=== PATIENT | female | born 1980 | race Caucasian/White ===

== ENCOUNTER 2023-11-08 19:05 | Emergency (ER) | payer MEDICAID, SELFPAY ==
--- NOTE | 2023-11-08 19:23 | XR_ITS ---
[address] [address] Patient Name: VIOLETA CLEARY MRN: [id number] date: 1980 Sex: F Assigned Patient Location: ED.MAIN Current Patient Location: Accession/Order Number: [id number] Exam Date: 11/08/2023 19:45 Report Date: 11/08/2023 22:10 At the request of: CHARLOTTE SIMPSON Procedure: XR chest 1V EXAM: XR chest 1V HISTORY: Palpitation COMPARISON: None FINDINGS/IMPRESSION: 1. Lungs are clear 2. No pneumothorax. No pleural effusion. 3. Heart size and mediastinal contours are normal 4. No acute osseous abnormality 5. Upper abdominal bowel gas pattern is nonspecific. Electronically authenticated by: VARGHESE SOUTH Date: 11/08/2023 22:10
--- NOTE | 2023-11-08 19:23 | ECG_ITS ---
[facility] Test Date: 2023-11-08 Pat Name: VIOLETA CLEARY Department: Room: - Gender: Female Management Lead: : 1980 Requested By: Order Number: [id number] Reading MD: ZAFAR RODRÍGUEZ Measurements Intervals [place] Rate: 97 P: -6 CA: 128 QRS: -27 QRSD: 64 T: 2 QT: 344 QTc: 398 Interpretive Statements 1100 Sinus rhythm 6220 Possible left atrial enlargement 7202 Moderate left axis deviation 9130 borderline ECG Compared to ECG 11/08/2023 19:23:22 No significant changes Electronically Signed On 11-08-2023 22:59:42 EDT by ZAFAR RODRÍGUEZ
--- NOTE | 2023-11-08 19:24 | ED.GENADUL1 ---
HPI HPI - General Adult General Chief complaint: Chest Pain Stated complaint: CHEST PAIN Time Seen by Provider: 11/08/23 19:19 History of Present Illness HPI narrative: 33-year-old female presents for a fast heartbeat. She states this started about 30 minutes ago and she has a history of SVT. Her last episode of SVT was 10 years ago and she had to go to the emergency department numerous times previous to that point. It has been continuous. She does not have syncope or fever or cough or vomiting. Related Data Home Medications ?Medication ?Instructions ?Recorded ?Confirmed sertraline 25 mg tablet (Zoloft) 25 mg PO Q24H 11/08/23 11/08/23 Allergies Allergy/AdvReac Type Severity Reaction Status Date / Time hydrocodone Allergy Intermediate TACHYCARDIA Verified 11/08/23 19:26 Opioid HPI Opioid Management Most Recent Opioid Data: No Data to Display Review of Systems ROS Narrative A ten point review of systems is negative except as noted above. Exam Narrative Exam Narrative: Nurses note and vital signs reviewed and patient is not hypoxic. General: The patient appears well and in no apparent distress. Patient is resting comfortably on cart. Skin: Warm, dry, no pallor noted. There is no rash noted. Head: Normocephalic, atraumatic Eye: Normal conjunctiva, no drainage Ears, Nose, Mouth, and Throat: oral mucosa is moist. Nares patent. Cardiovascular: Regular Rate and Rhythm, not tachycardic Respiratory: Patient is in no distress, no accessory muscle use, lungs are clear to auscultation, no wheezing, rales or rhonchi Back: non-tender GI: Soft and nontender Musculoskeletal: The patient has no evidence of calf tenderness, no pitting edema, symmetrical pulses noted bilaterally Neurological: A&O, normal speech Psychiatric: Cooperative Constitutional Vital Signs, click to edit/add: Last Vital Signs Temp 97.8 F 11/08/23 19:27 Pulse 102 H 11/08/23 19:27 Resp 20 11/08/23 19:27 BP 120/80 11/08/23 19:27 O2 Del Method Room Air 11/08/23 19:27 Course Vital Signs Vital signs: Vital Signs Temperature 97.8 F 11/08/23 19:27 Pulse Rate 102 H 11/08/23 19:27 Respiratory Rate 20 11/08/23 19:27 Blood Pressure 120/80 11/08/23 19:27 Oxygen Delivery Method Room Air 11/08/23 19:27 Temperature 97.8 F 11/08/23 19:27 Pulse Rate 102 H 11/08/23 19:27 Respiratory Rate 20 11/08/23 19:27 Blood Pressure 120/80 11/08/23 19:27 Oxygen Delivery Method Room Air 11/08/23 19:27 Medical Decision Making MDM Narrative Medical decision making narrative: The patient has been in normal sinus rhythm during her entire stay in the emergency department. Potassium slightly low at 3.1 so this was supplemented with oral potassium. She is being discharged home and has an appointment with her doctor by tomorrow by coincidence and she will keep that appointment. Treatment diagnosis and follow-up were discussed with the patient. Lab Data Lab results reviewed: Yes I reviewed the patient's lab results Labs: Lab Results 11/08/23 Range/Units 19:35 WBC 7.3 (4.0-11.0) 10^3/uL RBC 4.45 (4.20-5.40) 10^6/uL Hgb 13.0 (12.0-16.0) g/dL Hct 40.7 (36.0-48.0) % MCV 91.5 (81.0-99.0) fL MCH 29.2 (26.7-34.0) pg MCHC 31.9 (29.9-35.2) g/dL RDW 12.8 (11.0-15.0) % Plt Count 163 (150-450) 10^3/uL MPV 11.8 (9.5-13.5) fL Neut % (Auto) 68.0 (43.0-75.0) % Lymph % (Auto) 24.8 (20.5-60.0) % [place] % (Auto) 5.7 (1.7-12.0) % Eos % (Auto) 1.0 (0.9-7.0) % Baso % (Auto) 0.4 (0.2-2.0) % Neut # (Auto) 5.0 (1.4-6.5) 10^3/uL Lymph # (Auto) 1.8 (1.2-3.8) 10^3/uL [place] # (Auto) 0.4 (0.3-0.8) 10^3/uL Eos # (Auto) 0.1 (0.0-0.7) 10^3/uL Baso # (Auto) 0.0 (0.0-0.1) 10^3/uL Abs Immat Gran (auto) 0.01 (0.00-0.03) 10^3/uL Imm/Tot Granulo (auto) 0.1 (0.0-0.5) % Sodium 138 (136-145) mmol/L Potassium 3.1 L (3.5-5.1) mmol/L Chloride 105 (98-107) mmol/L Carbon Dioxide 23.4 (21.0-32.0) mmol/L Anion Gap 12.7 BUN 12.0 (7.0-18.0) mg/dL Creatinine 1.12 H (0.55-1.02) mg/dL Est GFR ( Amer) >60 (>=60) Est GFR (Non-Af Amer) 53 L (>=60) BUN/Creatinine Ratio 10.7 Glucose 126 H (74-106) mg/dL Calcium 9.1 (8.5-10.1) mg/dL Troponin I High Sens 4.2 (4.0-51.3) pg/mL ECG Data Attestation: I personally reviewed and interpreted this ECG as follows: (EKG on my interpretation shows normal sinus rhythm with a rate of 97 and no acute change.) Discharge Plan Discharge Stand Alone Forms: Portal Instructions Chief Complaint: Chest Pain Clinical Impression: Palpitations Patient Disposition: Home, Self-Care Time of Disposition Decision: 20:22 Condition: Good Mode of Transportation: Private Vehicle Prescriptions / Home Meds: No Action sertraline [Zoloft] 25 mg tablet 25 mg PO Q24H Print Language: Maltese Instructions: Heart Palpitations (ED) Additional Instructions: See your doctor at your appointment tomorrow Referrals: Becky Mitchell MD [Primary Care Provider] - 1 week
[2023-11-08 19:27] VITALS: BP 120/80; PULSE 102; TEMP 36.6; BMI 35.8
[2023-11-08 19:50] LABS: Basophils Percent Auto 0.4 % (0.2-2.0); Eosinophils Absolute Auto 0.1 10^3/uL (0.0-0.7); Hematocrit 40.7 % (36.0-48.0); Immature Granulocytes Abs Auto 0.01 10^3/uL (0.00-0.03); Immature Granulocytes Pct Auto 0.1 % (0.0-0.5); Lymphocytes Absolute Auto 1.8 10^3/uL (1.2-3.8); Lymphocytes Percent Auto 24.8 % (20.5-60.0); Mean Corpuscular HGB Conc 31.9 g/dL (29.9-35.2); Mean Corpuscular Hemoglobin 29.2 pg (26.7-34.0); Mean Corpuscular Volume 91.5 fL (81.0-99.0); Mean Platelet Volume 11.8 fL (9.5-13.5); Monocytes Absolute Auto 0.4 10^3/uL (0.3-0.8); Monocytes Percent Auto 5.7 % (1.7-12.0); Platelet Count 163 10^3/uL (150-450); Red Blood Count 4.45 10^6/uL (4.20-5.40); Red Cell Distribution Width 12.8 % (11.0-15.0); White Blood Count 7.3 10^3/uL (4.0-11.0)
[2023-11-08 20:04] LABS: Anion Gap 12.7; BUN Creatinine Ratio 10.7; Calcium 9.1 mg/dL (8.5-10.1); Carbon Dioxide 23.4 mmol/L (21.0-32.0); Chloride 105 mmol/L (98-107); Estimated GFR (African America >60 (>=60); Estimated GFR (Non-African Ame 53 (>=60); Glucose 126 mg/dL (74-106); Potassium 3.1 mmol/L (3.5-5.1); Sodium 138 mmol/L (136-145)
[2023-11-08 20:10] LABS: Troponin I High Sensitivity 4.2 pg/mL (4.0-51.3)
[2023-11-08] MEDS: POTASSIUM BICARBONATE/CIT 25 MEQ TABLET EFF 50 MEQ PO (20:30)
[2023-11-08 20:36] VITALS: BP 98/72; PULSE 82; O2SAT 97
== END 2023-11-08 20:36 | disposition home or self-care (01) ==
PROVIDERS: Emergency Provider Emergency Medicine; PCP Student in an Organized Health Care Education/Training Program
DX: R00.0 Tachycardia, unspecified (principal); E87.6 Hypokalemia
CPT/HCPCS: 36415; 71045; 80048; 84484; 85025; 93005; 99285